=== PATIENT | female | born 1940 | race American Indian/Alaskan Native ===

== ENCOUNTER 2018-02-05 18:31 | Emergency (ER) | payer MEDICARE ==
--- NOTE | 2018-02-05 20:39 | Cat Scan Report ---
FINAL REPORT EXAM: CT HEAD/BRAIN WO CON HISTORY: fall TECHNIQUE: Standard unenhanced CT of the head at 5.0 millimeter axial increments. PRIORS: CT head 02/01/2018 FINDINGS: The ventricular system is normal in size and configuration. There is no evidence for parenchymal volume loss. There is a remote infarct in the right frontoparietal lobe laterally. There small vessel ischemic changes in the periventricular white matter of both frontal horns. There are tiny remote lacunar infarcts in the caudate nuclei bilaterally. There is no evidence for mass lesion, mass effect, midline shift, acute intracranial hemorrhage, or acute ischemia/ infarction. No evidence for acute skull fracture is seen. No abnormality in the overlying scalp soft tissues is seen. Visualized paranasal sinuses are clear. IMPRESSION: Evidence for remote right frontoparietal infarct, small-vessel ischemic changes, and remote lacunar infarcts. No acute intracranial process noted. No change.
--- NOTE | 2018-02-05 20:48 | Cat Scan Report ---
FINAL REPORT EXAM: CT CERVICAL SPINE WO CON HISTORY: fall TECHNIQUE: Standard CT cervical spine obtained at 2.5 mm axial increments. Coronal and sagittal reconstruction was also performed. PRIORS: None. FINDINGS: The vertebral bodies are intact. There is no evidence for acute fracture. There is no evidence for paravertebral soft tissue swelling. Alignment is maintained. Moderate disc space narrowing at C5-C6 is seen. There is an incidental 7 mm well-defined rounded sclerotic focus in the dens, likely incidental bone island. The thyroid gland is lobulated and heterogeneous with hypodense rounded areas. Findings are likely due to goiter, however, should be further evaluated with ultrasound. IMPRESSION: 1. No acute abnormality of the cervical spine. 2. Degenerative disc changes at C5-C6 3. Lobulated heterogeneous thyroid is. Findings can be further evaluated with ultrasound.
--- NOTE | 2018-02-05 20:53 | XRay Report ---
FINAL REPORT EXAM: XR HAND 3+V RT HISTORY: fall TECHNIQUE: Three views of the right hand PRIORS: None. FINDINGS: The bones are normally aligned and mineralized. The joint spaces are well-preserved. There is no evidence of acute fracture. The soft tissues are unremarkable. IMPRESSION: No evidence of acute fracture or subluxation.
[2018-02-05] MEDS ORDERED: NORCO 5/325 PO ONE (21:21)
--- NOTE | 2018-02-05 21:28 | Emergency Department Report ---
HPI - General Chief Complaint: Fall Time Seen by Provider: 02/05/18 21:10 - HPI HPI: Room 6 The patient is a 77-year-old female presenting with a chief complaint fall. The patient states today she fell forward and injured her right hand. Pain young family member states the patient she was too big and came loose causing the patient to fall. Patient denies loss of consciousness. Patient claims of pain in the right hand. Patient denies any other forms of pain. Location: Right hand Duration: This evening Quality: Pain Severity: 03/16 Modifying factors: With direct pressure increases pain Context: [see above] Mode of transportation: [not driving] ED Past Medical Hx - Past Medical History Hx Hypertension: Yes Hx CVA: Yes Hx of Cancer: Yes (Colon CA status post resection) Hx Dementia: Yes - Surgical History Past Surgical History?: Yes Additional Surgical History: colon resection, hysterectomy - Family History Family history: no significant - Social History Smoking Status: Former Smoker (none 1 week) - Medications Home Medications: Home Medications Medication Instructions Recorded Confirmed Last Taken Type Atorvastatin [Lipitor] 02/01/18 Unknown History Clopidogrel Bisulfate [Plavix] 75 mg PO 02/01/18 Unknown History Famotidine [Pepcid] 20 mg PO 02/01/18 Unknown History Rivastigmine [Rivastigmine Patch 02/01/18 Unknown History 13.3mg/24hr] Sertraline [Zoloft] 25 mg PO QDAY 02/01/18 02/01/18 Unknown History Solifenacin Succinate [Vesicare] 5 mg PO 02/01/18 Unknown History Carvedilol [Coreg] 12.5 mg PO BID #60 tablet 02/02/18 Unknown Rx Hydrochlorothiazide 12.5 mg PO DAILY #30 tablet 02/02/18 Unknown Rx HYDROcodone/APAP 5-325 [[place] 1 - 2 each PO Q6HR PRN #14 tablet 02/05/18 Unknown Rx 5/325] Ibuprofen [Motrin 800 MG tab] 800 mg PO Q8HR PRN #20 tablet 02/05/18 Unknown Rx ED Review of Systems ROS: Stated complaint: FELL HIT HEAD/WRIST PAIN Other details as noted in HPI Constitutional: no symptoms reported Eyes: denies: eye pain ENT: denies: throat pain Cardiovascular: denies: chest pain Gastrointestinal: denies: abdominal pain Genitourinary: denies: dysuria Musculoskeletal: arthralgia, myalgia Neurological: denies: headache Physical Exam - Physical Exam Vital Signs: Vital Signs 02/05/18 02/05/18 02/05/18 19:18 20:32 20:41 Temperature 98.5 F Pulse Rate 62 71 Respiratory 18 16 16 Rate Blood Pressure 209/78 Blood Pressure 209/89 [Left] O2 Sat by Pulse 99 98 Oximetry Physical Exam: GENERAL: The patient is well-developed well-nourished female lying on stretcher not appearing to be in acute distress. [] HEENT: Normocephalic. Atraumatic. Extraocular motions are intact. Patient has moist mucous membranes. NECK: Supple. Trachea midline. No axial tenderness to palpation CHEST/LUNGS: Clear to auscultation. There is no respiratory distress noted. HEART/CARDIOVASCULAR: Regular. There is no tachycardia. There is no gallop rub or murmur. ABDOMEN: Abdomen is soft, nontender. Patient has normal bowel sounds. There is no abdominal distention. SKIN: There is no rash. There is no edema. There is no diaphoresis. NEURO: The patient is awake, alert, and oriented. The patient is cooperative. The patient has no focal neurologic deficits. The patient has normal speech. Cranial nerves II through XII grossly intact, no drift. Left institutional research coordinator 5+/5. Right institutional research coordinator unable to be fully tested secondary to pain and right hand MUSCULOSKELETAL: There is tenderness in the left anatomical snuffbox ED Course Vital Signs 02/05/18 02/05/18 02/05/18 19:18 20:32 20:41 Temperature 98.5 F Pulse Rate 62 71 Respiratory 18 16 16 Rate Blood Pressure 209/78 Blood Pressure 209/89 [Left] O2 Sat by Pulse 99 98 Oximetry ED Medical Decision Making - Radiology Data Radiology results: report reviewed (CT head, CT cervical spine, right hand x-ray ), image reviewed (CT head, CT cervical spine, right hand x-ray) [facility] [address] [place] [address] Cat Scan Report Signed Patient: BERENICE DIEHL MR#: [id number] : 1940 Acct:[id number] Age/Sex: 77 / F ADM Date: 02/05/18 Loc: ED Attending Dr: Ordering Physician: JOSE RAY MD Date of Service: 02/05/18 Procedure(s): CT head/brain wo con Accession Number(s): [id number] cc: JOSE RAY MD FINAL REPORT EXAM: CT HEAD/BRAIN WO CON HISTORY: fall TECHNIQUE: Standard unenhanced CT of the head at 5.0 millimeter axial increments. PRIORS: CT head 02/01/2018 FINDINGS: The ventricular system is normal in size and configuration. There is no evidence for parenchymal volume loss. There is a remote infarct in the right frontoparietal lobe laterally. There small vessel ischemic changes in the periventricular white matter of both frontal horns. There are tiny remote lacunar infarcts in the caudate nuclei bilaterally. There is no evidence for mass lesion, mass effect, midline shift, acute intracranial hemorrhage, or acute ischemia/ infarction. No evidence for acute skull fracture is seen. No abnormality in the overlying scalp soft tissues is seen. Visualized paranasal sinuses are clear. IMPRESSION: Evidence for remote right frontoparietal infarct, small-vessel ischemic changes, and remote lacunar infarcts. No acute intracranial process noted. No change. Transcribed By: [facility] Dictated By: JASON SOLORIO MD Electronically Authenticated By: JASON SOLORIO MD Signed Date/Time: 02/05/182033 DD/ 33 TD/TT: 02/05/182033 [facility] [address] [place] [address] Cat Scan Report Signed Patient: BERENICE DIEHL MR#: [id number] : 1940 Acct:[id number] Age/Sex: 77 / F ADM Date: 02/05/18 Loc: ED Attending Dr: Ordering Physician: JOSE RAY MD Date of Service: 02/05/18 Procedure(s): CT cervical spine wo con Accession Number(s): [id number] cc: JOSE RAY MD FINAL REPORT EXAM: CT CERVICAL SPINE WO CON HISTORY: fall TECHNIQUE: Standard CT cervical spine obtained at 2.5 mm axial increments. Coronal and sagittal reconstruction was also performed. PRIORS: None. FINDINGS: The vertebral bodies are intact. There is no evidence for acute fracture. There is no evidence for paravertebral soft tissue swelling. Alignment is maintained. Moderate disc space narrowing at C5-C6 is seen. There is an incidental 7 mm well-defined rounded sclerotic focus in the dens, likely incidental bone island. The thyroid gland is lobulated and heterogeneous with hypodense rounded areas. Findings are likely due to goiter, however, should be further evaluated with ultrasound. IMPRESSION: 1. No acute abnormality of the cervical spine. 2. Degenerative disc changes at C5-C6 3. Lobulated heterogeneous thyroid is. Findings can be further evaluated with ultrasound. Transcribed By: [facility] Dictated By: JASON SOLORIO MD Electronically Authenticated By: JASON SOLORIO MD Signed Date/Time: 02/05/182043 DD/ 43 TD/TT: 02/05/182043 [facility] [address] [place] [address] XRay Report Signed Patient: BERENICE DIEHL MR#: [id number] : 1940 Acct:[id number] Age/Sex: 77 / F ADM Date: 02/05/18 Loc: ED Attending Dr: Ordering Physician: BEHZAD PIZANO MD Date of Service: 02/05/18 Procedure(s): XR hand 3+V RT Accession Number(s): [id number] cc: ED MD JERICA Fluoro Time In Minutes: FINAL REPORT EXAM: XR HAND 3+V RT HISTORY: fall TECHNIQUE: Three views of the right hand PRIORS: None. FINDINGS: The bones are normally aligned and mineralized. The joint spaces are well-preserved. There is no evidence of acute fracture. The soft tissues are unremarkable. IMPRESSION: No evidence of acute fracture or subluxation. Transcribed By: [facility] Dictated By: MARYURI BANKS MD Electronically Authenticated By: MARYURI BANKS MD Signed Date/Time: 02/05/182047 DD/ 47 TD/TT: 02/05/182047 - Medical Decision Making I discussed with the family and patient the radiologist's findings of her thyroid on the CT cervical spine. The recommendation to follow up for an ultrasound was passed along to the patient and family and they verbalize understanding - Differential Diagnosis closed head injury, scaphoid fracture, metatarsal fracture Critical care attestation.: If time is entered above; I have spent that time in minutes in the direct care of this critically ill patient, excluding procedure time. ED Disposition Clinical Impression: Acute pain of right wrist Disposition: DC- TO HOME OR SELFCARE Is pt being admited?: No Does the pt Need Aspirin: No Condition: Stable Instructions: Scaphoid Fracture (ED) Additional Instructions: Return to the emergency department immediately should you develop worsening symptoms, fever, inability to tolerate food or liquid or any other concerns. Prescriptions: HYDROcodone/APAP 5-325 [[place] 5/325] 1 - 2 each PO Q6HR PRN #14 tablet PRN Reason: Pain Ibuprofen [Motrin 800 MG tab] 800 mg PO Q8HR PRN #20 tablet PRN Reason: Pain, Moderate (4-6) Referrals: PRIMARY CARE, [Primary Care Provider] - 3-5 Days (Please follow up with your primary physician for further evaluation of your thyroid) RIVKA PACHECO MD [Staff Physician] - 7-10 days (Dr. Pacheco is an orthopedic surgeon. Please follow up with him for further evaluation of your right wrist pain) LORI WEBBER MD [Staff Physician] - 3-5 Days (Dr. Webber is a primary physician. Please follow up with him if you do not have a primary physician) Time of Disposition: 21:40
[2018-02-05] MEDS ORDERED: CATAPRES ONE (21:57)
[2018-02-05] MEDS ORDERED: CATAPRES PO ONE (21:58)
[2018-02-05 22:53] VITALS: BP 186/73
== END 2018-02-05 23:03 | disposition home or self-care (01) ==
LOC: ED 18:31
DX: M25.531 Pain in right wrist (principal); I10 Essential (primary) hypertension; Z86.73 Personal history of transient ischemic attack (TIA), and cerebral infarction without residual deficits; Z87.891 Personal history of nicotine dependence; W18.30XA Fall on same level, unspecified, initial encounter; Y93.89 Activity, other specified; Y92.89 Other specified places as the place of occurrence of the external cause; Y99.8 Other external cause status
CPT/HCPCS: 70450; 72125; 99284